=== PATIENT | female | born 1950 | race Caucasian/White ===

== ENCOUNTER → 2016-07-25 | Outpatient (CLI) | payer MEDICARE, MEDICAID ==
[~2016-07-25] MED LIST: AVELOX400 MG PO; BIAXIN500 MG PO; DARVOCET N 1001 TAB PO; DOXYCYCLINE100 MG PO; FENOFIBRATE145 M1 PO; FUROSEMIDE40 MG PO; LEVOTHYROXINE300 MCG PO; LISINOPRIL5 MG PO; METFORMIN500 MG PO; PRAVASTATIN SOD20 MG PO; PREDNISONE10 MG PO; SERTRALINE HYD100 MG PO; VICODIN 5/500 505 MG PO; VITAMIN D50000 I3 PO; WARFARIN SOD5 MG PO; WARFARIN SODIUM1 MG PO
== END ==
LOC: CT 12:30
DX: J44.9 Chronic obstructive pulmonary disease, unspecified (principal); D68.8 Other specified coagulation defects; R05 Cough; R09.89 Other specified symptoms and signs involving the circulatory and respiratory systems; F17.200 Nicotine dependence, unspecified, uncomplicated

== ENCOUNTER → 2016-07-31 | Outpatient (CLI) | payer MEDICARE, MEDICAID | LOC: US 07-28 12:30 | DX: I73.9 Peripheral vascular disease, unspecified (principal); D68.8 Other specified coagulation defects ==

== ENCOUNTER → 2016-08-16 | Outpatient (CLI) | payer MEDICARE, MEDICAID | END | disposition home or self-care (01) | LOC: LAB 10:20 | DX: J44.9 Chronic obstructive pulmonary disease, unspecified (principal) ==

== ENCOUNTER 2016-10-18 14:27 | Emergency (ER) | payer MEDICARE, MEDICAID ==
[~2016-10-18] VITALS: Ht 170.1 cm; Wt 90.7 kg
[2016-10-18 15:04] LABS: OXYHEMOGLOBIN 87.5 % (85.0-98.0); TOTAL HGB 14.5 G/DL (12.0-16.0)
[2016-10-18 15:05] LABS: BASO % 0.4 % (0.0-1.0); EOS # 0.1 10*3/uL (0.0-0.4); EOS % 1.2 % (1.0-4.0); HEMATOCRIT 42.4 % (37.0-47.0); LYMPH # 2.4 10*3/uL (1.3-4.4); LYMPH % 31.2 % (27.0-41.0); MEAN CELL VOLUME 89.1 fl (81.0-99.0); MEAN CORPUSCULAR HGB 29.4 pg (27.0-31.0); MEAN PLATELET VOLUME 8.7 fl (9.6-12.3); MONO # 0.5 10*3/uL (0.1-1.0); MONO % 6.1 % (3.0-9.0); NEUT # 4.7 10*3/uL (2.3-7.9); NEUT % 60.8 % (47.0-73.0); PLATELET COUNT AUTOMATED 132 10*3/uL (130-400); RED BLOOD COUNT 4.76 10*6/uL (4.10-5.10); RED CELL DISTRI WIDTH 16.1 % (0-14.5); WHITE BLOOD COUNT 7.7 10*3/uL (4.8-10.8)
[2016-10-18 15:09] LABS: ABG BASE EXCESS 1.1 mmol/L (-2.0-2.0); ABG CO2 CONTENT 28.8 mmol/L (23-27); ABG HCO3 27.2 mmol/l (22-26); ABG TEMPERATURE 98.6 F (98.0-99.0); ARTERIAL BLOOD GAS PH 7.342 (7.35-7.45)
[2016-10-18 15:10] VITALS: BP 138/86
[2016-10-18 15:36] LABS: ALKALINE PHOSPHATASE 58 U/L (45-117); BILIRUBIN, TOTAL 0.4 mg/dl (0.2-1.0); BUN 17 mg/dl (7-24); CARBON DIOXIDE 27 mmol/L (21-32); CHLORIDE 104 mmol/L (98-107); EST GLOM FILT AFRICAN AMERICAN > 60 ml/min; GLUCOSE 129 mg/dL (65-99); POTASSIUM 4.3 mmol/L (3.5-5.1); SGOT/AST 27 IU/L (3-35); SGPT/ALT 25 U/L (12-78); SODIUM 140 mmol/L (136-145); TOTAL PROTEIN 8.3 gm/dL (6.4-8.2)
[2016-10-18 15:41] LABS: TROPONIN I < 0.015 ng/ml (<0.045)
[2016-10-18 17:01] LABS: LA>2 REFLEX 2 HR DRAW NOW
== END 2016-10-18 17:56 | disposition short-term general hospital (02) ==
LOC: ED 14:27
PROVIDERS: Student in an Organized Health Care Education/Training Program
DX: T20.30XA Burn of third degree of head, face, and neck, unspecified site, initial encounter (principal); Z79.899 Other long term (current) drug therapy; Z88.1 Allergy status to other antibiotic agents; Z88.8 Allergy status to other drugs, medicaments and biological substances; X08.8XXA Exposure to other specified smoke, fire and flames, initial encounter; Y93.89 Activity, other specified; Y92.89 Other specified places as the place of occurrence of the external cause; Y99.8 Other external cause status

== ENCOUNTER → 2016-10-31 | Outpatient (CLI) | payer MEDICARE, MEDICAID | END | disposition home or self-care (01) | LOC: RAD 13:39 | DX: J44.9 Chronic obstructive pulmonary disease, unspecified (principal); E11.9 Type 2 diabetes mellitus without complications ==

== ENCOUNTER 2016-11-06 12:11 | Emergency (ER) | payer MEDICARE, MEDICAID ==
[2016-11-06 12:38] LABS: BASO % 0.4 % (0.0-1.0); EOS # 0.1 10*3/uL (0.0-0.4); EOS % 1.6 % (1.0-4.0); HEMATOCRIT 35.7 % (37.0-47.0); HEMOGLOBIN 11.9 g/dl (12.0-16.0); LYMPH # 1.1 10*3/uL (1.3-4.4); LYMPH % 14.4 % (27.0-41.0); MEAN CELL VOLUME 89.3 fl (81.0-99.0); MEAN CORPUSCULAR HGB 29.8 pg (27.0-31.0); MEAN CORPUSCULAR HGB CONC 33.3 g/dl (33.0-37.0); MEAN PLATELET VOLUME 8.7 fl (9.6-12.3); MONO # 0.4 10*3/uL (0.1-1.0); MONO % 5.2 % (3.0-9.0); NEUT % 77.9 % (47.0-73.0); PLATELET COUNT AUTOMATED 154 10*3/uL (130-400); RED CELL DISTRI WIDTH 17.3 % (0-14.5); WHITE BLOOD COUNT 7.7 10*3/uL (4.8-10.8)
[2016-11-06 12:45] LABS: ACT PARTIAL THROMBO TIME 26.7 SECONDS (20.8-31.5)
[2016-11-06 12:53] LABS: ALBUMIN 3.3 gm/dl (3.1-4.5); ALKALINE PHOSPHATASE 75 U/L (45-117); BUN 25 mg/dl (7-24); CHLORIDE 96 mmol/L (98-107); CREATININE 1.32 mg/dL (0.55-1.02); MAGNESIUM 2.3 mg/dL (1.5-2.1); POTASSIUM 3.7 mmol/L (3.5-5.1); SGOT/AST 17 IU/L (3-35); SGPT/ALT 16 U/L (12-78); SODIUM 135 mmol/L (136-145); TOTAL PROTEIN 8.2 gm/dL (6.4-8.2)
[2016-11-06 13:02] LABS: TROPONIN I < 0.015 ng/ml (<0.045)
[2016-11-06 17:34] VITALS: BP 113/57
== END 2016-11-06 18:30 | disposition home or self-care (01) ==
LOC: ED 12:11
PROVIDERS: Emergency Medicine
DX: J18.9 Pneumonia, unspecified organism (principal); I26.99 Other pulmonary embolism without acute cor pulmonale; R09.1 Pleurisy; J44.9 Chronic obstructive pulmonary disease, unspecified; Z79.899 Other long term (current) drug therapy; Z88.1 Allergy status to other antibiotic agents

== ENCOUNTER → 2017-02-06 | Outpatient (CLI) | payer MEDICARE, MEDICAID ==
[~2017-02-06] MED LIST changes: +CENTRUM SILVER1 EACH PO; +CYCLOBENZAPRINE10 MG PO; +ERYTHROMYCIN OPH1 GM OPH; +GUAIFENESIN600 MG PO; -LEVOTHYROXINE300 MCG PO; +Synthroid,Lev200 MCG PO; +Synthroid,Levo25 MCG PO; +TRAMADOL HCL50 MG PO; +VITAMIN D31000 UNI1 PO
== END ==
LOC: CT 13:00
DX: J43.9 Emphysema, unspecified (principal); I25.10 Atherosclerotic heart disease of native coronary artery without angina pectoris; J92.9 Pleural plaque without asbestos

== ENCOUNTER 2017-02-26 10:21 | Inpatient (IN) | payer MEDICARE, MEDICAID ==
[~2017-02-26] VITALS: Ht 160 cm; Wt 82.6 kg
--- NOTE | ~2017-02-26 | CON ---
[place], [place] REPORT OF CONSULTATION NAME: DEION LOPEZ UNIT #: [id number] ROOM: 427 DOCTOR: YARELY TENA ED.D (MARY JANE) BIRTHDATE: [birth year] DOS: 02/27/2017 HISTORY OF PRESENT ILLNESS: The patient is a 66-year-old female, referred by the hospitalist for competency evaluation. At the present time, this patient is on the 4th floor at [facility]. She is and has no children, but does have a durable power of insurance defense attorney for the [facility], Syl Colon. 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 Her family physician is Esperanza Rodriguez, nurse practitioner. MEDICAL HISTORY: Pertinent for COPD, bowel and bladder incontinence, deep vein thrombophlebitis, chronic respiratory failure, diabetes mellitus, hypertension and depression. MEDICATIONS: Include Symbicort, vitamin D3, fenofibrate, Synthroid, lisinopril, metformin, pravastatin, Zoloft, tramadol and warfarin. SOCIAL HISTORY: This patient states she does smoke one and one half packs of cigarettes per day and some alcohol, but not excessively. PHYSICAL EXAMINATION: She was awake, alert and oriented in all three spheres. She denies any suicidal ideation or plan. Her short and long-term memory were fair and she did fairly well, although she was somewhat confused earlier because she had, in her words, so many people coming in to see her that she became somewhat confused. Throughout my interview, she did very well and in my opinion, she is competent to make informed healthcare decisions. She does suffer from mild depression. DIAGNOSIS: Persistent depressive disorder. RECOMMENDATIONS: In my opinion, this patient is competent to make informed healthcare decisions. Thank you very much for this consult. YARELY TENA ED.D CM:CONSTR:REPORT OF CONSULTATION 1647 02/28/17 0323 interface
[2017-02-26 10:30] VITALS: BP 116/85
[2017-02-26 11:38] LABS: BASO % 0.4 % (0.0-1.0); EOS # 0.5 10*3/uL (0.0-0.4); EOS % 9.5 % (1.0-4.0); HEMOGLOBIN 11.7 g/dl (12.0-16.0); LYMPH # 0.9 10*3/uL (1.3-4.4); LYMPH % 15.7 % (27.0-41.0); MEAN CELL VOLUME 82.7 fl (81.0-99.0); MEAN CORPUSCULAR HGB 27.7 pg (27.0-31.0); MEAN CORPUSCULAR HGB CONC 33.4 g/dl (33.0-37.0); MEAN PLATELET VOLUME 9.3 fl (9.6-12.3); MONO # 0.4 10*3/uL (0.1-1.0); NEUT # 3.8 10*3/uL (2.3-7.9); PLATELET COUNT AUTOMATED 118 10*3/uL (130-400); RED BLOOD COUNT 4.23 10*6/uL (4.10-5.10); RED CELL DISTRI WIDTH 17.4 % (0-14.5); WHITE BLOOD COUNT 5.7 10*3/uL (4.8-10.8)
[2017-02-26 11:45] VITALS: BP 142/75
--- NOTE | 2017-02-26 11:52 | NUR ---
The assessment has been completed. JARROD ABEL
[2017-02-26 12:00] VITALS: BP 142/75
[2017-02-26 12:00] LABS: ALBUMIN 3.7 gm/dl (3.1-4.5); ALKALINE PHOSPHATASE 135 U/L (45-117); BUN 17 mg/dl (7-24); CHLORIDE 102 mmol/L (98-107); CREATININE 1.01 mg/dL (0.55-1.02); LIPASE 163 U/L (73-393); POTASSIUM 3.7 mmol/L (3.5-5.1); SGOT/AST 18 IU/L (3-35); SGPT/ALT 23 U/L (12-78); SODIUM 134 mmol/L (136-145)
[2017-02-26 12:02] LABS: TROPONIN I < 0.015 ng/ml (<0.045)
[2017-02-26] MEDS ORDERED: OYSTER SHELL C1 EAC7 PO (12:08)
[2017-02-26] MEDS ORDERED: SYMB160 INH (12:09)
[2017-02-26] MEDS ORDERED: INCRUSE ELLI62.5 MCG INH (12:10)
[2017-02-26] MEDS ORDERED: PROLASTIN C1000 MG IV (12:33)
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
[2017-02-26 16:00] VITALS: BP 121/67
--- NOTE | 2017-02-26 19:42 | NUR ---
PATIENT RESTING IN BED WITH NO S/S OF DISTRESS. BED IN LOWEST POSITION, CALL LIGHT IN REACH
[2017-02-26 20:00] VITALS: BP 104/63
[2017-02-27] VITALS: BP 122/66
--- NOTE | 2017-02-27 03:04 | NUR ---
PATIENT MEDICATED WITH PRN NORCO FOR LOWER BACK PAIN RATED 5/10 ON A 0/10 PAIN SCALE
[2017-02-27 07:23] LABS: BASO % 0.6 % (0.0-1.0); EOS # 0.5 10*3/uL (0.0-0.4); EOS % 9.8 % (1.0-4.0); HEMATOCRIT 33.8 % (37.0-47.0); LYMPH % 21.5 % (27.0-41.0); MEAN CELL VOLUME 84.9 fl (81.0-99.0); MEAN CORPUSCULAR HGB 27.6 pg (27.0-31.0); MEAN CORPUSCULAR HGB CONC 32.5 g/dl (33.0-37.0); MEAN PLATELET VOLUME 9.7 fl (9.6-12.3); MONO # 0.3 10*3/uL (0.1-1.0); MONO % 6.4 % (3.0-9.0); NEUT # 2.9 10*3/uL (2.3-7.9); NEUT % 61.3 % (47.0-73.0); PLATELET COUNT AUTOMATED 128 10*3/uL (130-400); RED BLOOD COUNT 3.98 10*6/uL (4.10-5.10); RED CELL DISTRI WIDTH 17.9 % (0-14.5); WHITE BLOOD COUNT 4.7 10*3/uL (4.8-10.8)
[2017-02-27 07:28] LABS: INTERNATIONAL NORM RATIO 3.3 (2.0-3.5)
[2017-02-27 08:00] VITALS: BP 118/48
--- NOTE | 2017-02-27 08:30 | NUR ---
SW WILL WORK ON DC PLAN.
[2017-02-27 08:33] LABS: CHLORIDE 106 mmol/L (98-107); POTASSIUM 4.1 mmol/L (3.5-5.1); SODIUM 139 mmol/L (136-145)
[2017-02-27 08:45] LABS: ALBUMIN 3.2 gm/dl (3.1-4.5); ALKALINE PHOSPHATASE 123 U/L (45-117); BUN 15 mg/dl (7-24); CHOLESTEROL 126 mg/dL (<200); CREATININE 0.96 mg/dL (0.55-1.02); FREE T4 1.22 ng/dl (0.76-1.46); HDL CHOLESTEROL 49 mg/dl (40-60); LDL CHOLESTEROL 52 mg/dL (9-159); PHOSPHOROUS 3.7 mg/dL (2.5-4.9); SGOT/AST 15 IU/L (3-35); SGPT/ALT 20 U/L (12-78); TOTAL PROTEIN 7.2 gm/dL (6.4-8.2); TRIGLYCERIDES 126 mg/dl (<150); VLDL CHOLESTEROL 25 mg/dL (6-40)
[2017-02-27] MEDS ORDERED: COUMADIN6 M2 PO (08:57)
--- NOTE | 2017-02-27 09:00 | NUR ---
NOTIFIED DR RODRIGUEZ THAT PT RECEIVES PROLASTIN-C OUTPATIENT ON TUESDAYS AND IS DUE TODAY.
--- NOTE | 2017-02-27 09:15 | NUR ---
PHYSICAL THERAPY Patient with nursing and then respiratory therapy entered. Thank you for this referral. Jen Rollins,PT
[2017-02-27 09:59] LABS: VITAMIN D, 25-HYDROXY 36.1 ng/mL (30-100)
--- NOTE | 2017-02-27 10:28 | NUR ---
OFFICE STAFF WAS NOTIFIED OF DR. TENA CONSULT. RESPONSE OF NOTIFICATION WAS OK I WILL GIVE IT TO HIM. NIKKI LERNER
--- NOTE | 2017-02-27 10:33 | NUR ---
PHYSICIAN WAS NOTIFIED OF DR. NUNEZ CONSULT. RESPONSE OF NOTIFICATION WAS DR NUNEZ WAS ON FLOOR AND WENT TO SEE PATIENT. NIKKI LERNER
--- NOTE | 2017-02-27 10:39 | NUR ---
PHYSICAL THERAPY PAtient evaluated on 4, full evaluation to follow. Continue with PT as per plan of care with fall, wounds (B)LE, 02 and acute debility precautions. Multiple loses of balance, safety issues and significiant dyspneia with minimal exertion - recommend SNF in order to return to 100 % (I) PLOF. PAtient is moderate complexity via chart review, tests and evaluation: 15702. Thank you for this referral. Jen Garcia,PT
--- NOTE | 2017-02-27 11:17 | NUR ---
PT EVALUATION COMPLETED AT BS. OT MODERATE COMPLEXITY DETERMINED BY OT EVAL AND CHART REVIEW.
--- NOTE | 2017-02-27 11:56 | NUR ---
DEION LOPEZ [id number] Please refer to the physician's history and physical for past medical history, comorbid conditions, and allergies. Diagnosis: CELLULITIS OF BOTH LOWER EXTREMITIES Tariq Score: 22,LOW OR NO RISK WOUND DESCRIPTIONS: Location of the wound: right top of foot Thickness: Full Size: 2.0cm x 2.0cm x 0.1cm Tunneling: none Undermining: none Sinus Tract: none Presence of Exudate: Serous Amount: Moderate Color: Yellow, red, brown Odor: None Periwound Skin Appearance: Erythema Wound edges: approximated Pain (associated with wound): none at time of assessment How does patient state this happened? pt stated it occurred from itching her legs a couple weeks ago and has gotten worse Pedal pulse bilaterally very faint to touch. Location of the wound: right lower extremity medial Thickness: Full Size: 6.5cm x 4.5cm x 0.1cm Tunneling: none Undermining: none Sinus Tract: none Presence of Exudate: Serous Amount: Moderate Color: Yellow, red Odor: None Periwound Skin Appearance: Erythema Wound edges: approximated Pain (associated with wound): none at time of assessment How does patient state this happened? pt stated it occurred from itching her Legs a couple weeks ago and has gotten worse. Location of the wound: left lower extremity medial Thickness: Full Size: 6.0cm x 4.0cm x 0.1cm Tunneling: none Undermining: none Sinus Tract: none Presence of Exudate: Serous Amount: Moderate Color: Yellow, red Odor: None Periwound Skin Appearance: Erythema Wound edges: approximated Pain (associated with wound): none at time of assessment How does patient state this happened? pt stated it occurred from itching her Legs a couple weeks ago and has gotten worse. Surface the patient is resting on: Position Pro SKIN PREVENTION RECOMMENDATION: 1. Pressure redistribution support surface as appropriate 2. Elevate heels 3. Remove boots/TEDS every shift and reapply 4. Head of bed 30 degrees as tolerated 5. Assess nutrition and hydration 6. Manage moisture 7. Avoid the use of containment devices while in bed 8. Use absorptive products on surfaces limit layers of linens on bed 9. Turn and reposition every 1-2 hours in bed and every 1 hour in chair as tolerated 10. Weight shifts every 15 minutes while up in chair 11. Offloading with pillows or device to keep heels elevated off bed 12. Monitor skin at least every shift 13. Inspect under medical devices twice a day WOUND TREATMENT RECOMMENDATIONS: Consult surgery for possible debridement. Cleanse Bilateral lower extremities with nss and apply sureprep to surrounding wound apply therahoney to wound bed cover wound with maxorb and apply abd and wrap with kerlix daily and prn for soiling.
[2017-02-27 12:00] VITALS: BP 113/69
--- NOTE | 2017-02-27 12:54 | NUR ---
SW SPOKE WITH PT ABOUT DISCHARGE PLANS. PT HAS A NEW APARTMRNT AT [address] [place] [address]. PT AGREED TO GO TO SNF AT [facility] FOR SHORT REHAB STAY. SW WILL MAKE REFERRAL.
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
--- NOTE | 2017-02-27 13:18 | NUR ---
AG NOTIFIED HOSPITALIST OFFICE BETTYE THAT PT AGREED TO SNF STAY AT [facility].
--- NOTE | 2017-02-27 13:31 | NUR ---
OFFICE STAFF WAS NOTIFIED OF DR. DURAN CONSULT. RESPONSE OF NOTIFICATION WAS OK I WILL GIVE IT TO HER. NIKKI LERNER
--- NOTE | 2017-02-27 13:57 | NUR ---
PER PHARMACY WE ARE UNABLE TO DO PROLASTIN INFUSION WHILE SHE IS INPATIENT BECAUSE OF COST. WILL NOTIFY DR RODRIGUEZ.
[2017-02-27 16:00] VITALS: BP 106/53
[2017-02-27 20:00] VITALS: BP 108/68
--- NOTE | 2017-02-27 22:41 | NUR ---
PATIENT RESTING IN BED WITH NO NEEDS MADE. ABX INFUSING WITHOUT DIFFICULTY. BED IN LOWEST POSITION, CALL LIGHT IN REACH
[2017-02-28] VITALS: BP 110/50
--- NOTE | 2017-02-28 00:45 | NUR ---
PATIENT MEDICATED WITH PRN NORCO FOR C/O LOWER BACK PAIN RATED 4/10 ON A 0/10 PAIN SCALE
--- NOTE | 2017-02-28 00:58 | NUR ---
24 HR chart check completed.
[2017-02-28 04:04] VITALS: BP 108/52
[2017-02-28 07:56] LABS: BASO % 0.5 % (0.0-1.0); EOS # 0.5 10*3/uL (0.0-0.4); EOS % 11.8 % (1.0-4.0); HEMATOCRIT 32.6 % (37.0-47.0); HEMOGLOBIN 10.8 g/dl (12.0-16.0); LYMPH # 0.9 10*3/uL (1.3-4.4); LYMPH % 23.3 % (27.0-41.0); MEAN CELL VOLUME 84.5 fl (81.0-99.0); MEAN CORPUSCULAR HGB CONC 33.1 g/dl (33.0-37.0); MONO # 0.3 10*3/uL (0.1-1.0); MONO % 6.9 % (3.0-9.0); NEUT # 2.2 10*3/uL (2.3-7.9); NEUT % 57.2 % (47.0-73.0); PLATELET COUNT AUTOMATED 108 10*3/uL (130-400); RED BLOOD COUNT 3.86 10*6/uL (4.10-5.10); WHITE BLOOD COUNT 3.9 10*3/uL (4.8-10.8)
[2017-02-28 08:00] VITALS: BP 113/64
[2017-02-28 08:23] LABS: CHLORIDE 105 mmol/L (98-107); POTASSIUM 4.1 mmol/L (3.5-5.1); SODIUM 140 mmol/L (136-145)
[2017-02-28 08:27] LABS: BUN 14 mg/dl (7-24); INTERNATIONAL NORM RATIO 1.8 (2.0-3.5)
--- NOTE | 2017-02-28 08:36 | NUR ---
IN BED AWAKE ALERT AND ORIENTED X3, NO S/S OF DISTRESS. NO C/O. WILL CONT TO MONITOR. SEE ASSESS. CALL LIGHT IN REACH.
--- NOTE | 2017-02-28 10:20 | NUR ---
PHYSICAL THERAPY Patient presented to therapy in supine with report of skin pealing off her hands and pain in feet with standing. Patient performed sit to stand transfer with CGA for 200' x 1 with instruction on pacing herself with no assistive device. Patient's O2 dropped ot 89% while performing gait. Patient did not demonstrate SOB while ambulating. Patient then performed seated ther ex x 20 reps each LE in all planes of movement. Patient transfered back to supine in bed and bed alarm was activated and call light was put within reach. MJ HARP LIGHT INDUSTRIAL SUPERVISOR
[2017-02-28 12:00] VITALS: BP 113/62
[2017-02-28 16:00] VITALS: BP 121/57
--- NOTE | 2017-02-28 16:00 | NUR ---
[facility] THAT FACILITY CAN ACCEPT PT ON SUNDAY.
[2017-02-28 20:00] VITALS: BP 121/59
--- NOTE | 2017-02-28 22:20 | NUR ---
PATIENT RESTING IN BED WATCHING TV. NO NEEDS MADE. NO S/S OF DISTRESS. BED IN LOWEST POSITION, CALL LIGHT IN REACH
[2017-03-01] VITALS: BP 118/55
--- NOTE | 2017-03-01 00:46 | NUR ---
24 HR chart check completed.
--- NOTE | 2017-03-01 01:25 | NUR ---
PATIENT MEDICATED WITH PRN RESTORIL FOR C/O SLEEPLESSNESS
--- NOTE | 2017-03-01 02:59 | NUR ---
PATIENT RESTING IN BED WITH NO S/S OF DISTRESS. BED IN LOWEST POSITION, CALL LIGHT IN REACH
[2017-03-01 07:37] LABS: BASO % 0.5 % (0.0-1.0); EOS # 0.5 10*3/uL (0.0-0.4); EOS % 11.4 % (1.0-4.0); HEMATOCRIT 31.1 % (37.0-47.0); HEMOGLOBIN 10.2 g/dl (12.0-16.0); LYMPH # 0.9 10*3/uL (1.3-4.4); MEAN CELL VOLUME 86.6 fl (81.0-99.0); MEAN CORPUSCULAR HGB 28.4 pg (27.0-31.0); MEAN CORPUSCULAR HGB CONC 32.8 g/dl (33.0-37.0); MEAN PLATELET VOLUME 9.9 fl (9.6-12.3); MONO # 0.3 10*3/uL (0.1-1.0); MONO % 7.9 % (3.0-9.0); NEUT # 2.3 10*3/uL (2.3-7.9); NEUT % 57.7 % (47.0-73.0); PLATELET COUNT AUTOMATED 111 10*3/uL (130-400); RED BLOOD COUNT 3.59 10*6/uL (4.10-5.10)
[2017-03-01 08:00] VITALS: BP 115/58
[2017-03-01 08:07] LABS: CHLORIDE 106 mmol/L (98-107); POTASSIUM 4.4 mmol/L (3.5-5.1); SODIUM 141 mmol/L (136-145)
[2017-03-01 08:12] LABS: INTERNATIONAL NORM RATIO 1.6 (2.0-3.5)
[2017-03-01 08:15] LABS: ALKALINE PHOSPHATASE 105 U/L (45-117); BUN 16 mg/dl (7-24); CREATININE 0.96 mg/dL (0.55-1.02); SGOT/AST 22 IU/L (3-35); SGPT/ALT 21 U/L (12-78); TOTAL PROTEIN 7.1 gm/dL (6.4-8.2)
--- NOTE | 2017-03-01 10:42 | NUR ---
DRESSINGS NOT APPLIED REQUESTS AT THIS TIME, SO WOUNDS CAN BE LOOKED AT
--- NOTE | 2017-03-01 11:47 | NUR ---
ASSUMED CARE OF PATIENT. PATIENT STATES THEY ARE GETTING DISCHARGED TODAY AND WANT TO GET A SHOWER AND PUT ON REAL CLOTHES. PATIENT IS A&OX3 AND AMBULATORY. PATIENT VERBALIZES FEELING SOB ON EXERTION WHILE ON 2LPM VIA NC. PATIENT HAS PARKER TO BOTH LE FROM MIDDLE OF THE CONWAY DOWN. PATIENT DENIES PAIN OR DISCOMFORT AT THIS TIME. CALL LIGHT IS WITHIN REACH, HOB ELEVATED. SEE ASSESSMENT.
[2017-03-01 12:00] VITALS: BP 113/58
[2017-03-01] MEDS ORDERED: DOXYCYCLINE100 M3 PO (13:10)
--- NOTE | 2017-03-01 13:58 | NUR ---
PHYSICAL THERAPY Patient presented to therapy with report of not going home today, but she may go home tommorrow. Patient performed supine to sit at EOB and sit to stand transfers with Supervision. Patient performed gait with no assistive device and no spO2 for 300' x 1 with Close Supervision with one standing rest break. Patient then performed seated at EOB ther ex x 20 reps each LE in all planes of movement. Patient was left in supine position in bed with bed arm activated and call light within reach. MJ HARP RN BABY
--- NOTE | 2017-03-01 14:08 | NUR ---
PHYSICAL THERAPY CO-SIGN I approve of the Phyical Therapy notes written above. NALDO JENKINS PT
--- NOTE | 2017-03-01 15:46 | NUR ---
SW WAS INFORMED DISCHARGE WAS IN. SW CALLED NURSE ABOUT SETTING UP TRANSPORTATION. NURSE STATED PT WAS GOIGN TO HAVE FRIEND TAKE HER OR A TAXI.
--- NOTE | 2017-03-01 15:47 | NUR ---
SW NOTIFIED AVELINO AT [facility] THAT DISCHARGE WAS IN ND TRANSPORTATION WAS BEING ARRANGED.
[2017-03-01 16:00] VITALS: BP 120/56
== END 2017-03-01 17:45 | disposition other institution (70) | DRG 872 ==
LOC: ED 10:21 → EDHOLD 11:06 → 4E 11:06
PROVIDERS: Emergency Medicine; Internal Medicine; ADMIT Internal Medicine
DX: A41.9 Sepsis, unspecified organism (principal); J96.11 Chronic respiratory failure with hypoxia; D69.6 Thrombocytopenia, unspecified; E11.65 Type 2 diabetes mellitus with hyperglycemia; E11.621 Type 2 diabetes mellitus with foot ulcer; L97.519 Non-pressure chronic ulcer of other part of right foot with unspecified severity; L03.115 Cellulitis of right lower limb; L03.116 Cellulitis of left lower limb; M48.56XA Collapsed vertebra, not elsewhere classified, lumbar region, initial encounter for fracture; F17.210 Nicotine dependence, cigarettes, uncomplicated; R65.20 Severe sepsis without septic shock; D64.9 Anemia, unspecified; J44.9 Chronic obstructive pulmonary disease, unspecified; I10 Essential (primary) hypertension; E78.5 Hyperlipidemia, unspecified; E03.9 Hypothyroidism, unspecified; I87.2 Venous insufficiency (chronic) (peripheral); F34.1 Dysthymic disorder; G89.29 Other chronic pain; M54.40 Lumbago with sciatica, unspecified side; Z99.81 Dependence on supplemental oxygen; Z88.1 Allergy status to other antibiotic agents; Z79.01 Long term (current) use of anticoagulants; Z79.899 Other long term (current) drug therapy; Z86.718 Personal history of other venous thrombosis and embolism; Z82.3 Family history of stroke; Z80.1 Family history of malignant neoplasm of trachea, bronchus and lung; Z79.84 Long term (current) use of oral hypoglycemic drugs

== ENCOUNTER → 2017-05-09 | Outpatient (CLI) | payer MEDICARE, MEDICAID ==
[~2017-05-09] MED LIST changes: +BREO ELLIPTA 11 EACH INH; +COUMADIN6 M2 PO; +DOXYCYCLINE100 M3 PO; +FENOFIBRATE MI200 MG PO; +INCRUSE ELLI62.5 MCG INH; +OYSTER SHELL C1 EAC7 PO; +PROLASTIN C1000 MG IV; +SYMB160 INH
== END | disposition home or self-care (01) ==
LOC: ORTHO 02:14
DX: M47.896 Other spondylosis, lumbar region (principal); M47.897 Other spondylosis, lumbosacral region; M25.78 Osteophyte, vertebrae; I70.0 Atherosclerosis of aorta

== ENCOUNTER 2017-05-24 18:14 | Inpatient (IN) | payer MEDICARE, MEDICAID ==
[~2017-05-24] VITALS: Ht 160 cm; Wt 77.1 kg
[2017-05-24 18:22] VITALS: BP 136/47
[2017-05-24 19:10] LABS: BASO % 0.4 % (0.0-1.0); EOS # 0.4 10*3/uL (0.0-0.4); HEMATOCRIT 38.8 % (37.0-47.0); HEMOGLOBIN 12.4 g/dl (12.0-16.0); LYMPH # 0.8 10*3/uL (1.3-4.4); LYMPH % 15.7 % (27.0-41.0); MEAN CELL VOLUME 87.6 fl (81.0-99.0); MEAN PLATELET VOLUME 9.3 fl (9.6-12.3); MONO # 0.3 10*3/uL (0.1-1.0); MONO % 5.8 % (3.0-9.0); NEUT # 3.5 10*3/uL (2.3-7.9); NEUT % 69.9 % (47.0-73.0); PLATELET COUNT AUTOMATED 162 10*3/uL (130-400); RED BLOOD COUNT 4.43 10*6/uL (4.10-5.10); RED CELL DISTRI WIDTH 15.5 % (0-14.5)
[2017-05-24 19:19] LABS: INTERNATIONAL NORM RATIO 4.1 (2.0-3.5)
[2017-05-24 19:25] LABS: ALBUMIN 3.5 gm/dl (3.1-4.5); ALKALINE PHOSPHATASE 87 U/L (45-117); BUN 17 mg/dl (7-24); CHLORIDE 99 mmol/L (98-107); POTASSIUM 3.9 mmol/L (3.5-5.1); SGOT/AST 16 IU/L (3-35); SGPT/ALT 19 U/L (12-78); SODIUM 135 mmol/L (136-145); TOTAL PROTEIN 8.5 gm/dL (6.4-8.2)
[2017-05-24 19:52] VITALS: BP 129/95
[2017-05-24 20:16] LABS: BILIRUBIN NEGATIVE (NEGATIVE); BLOOD NEGATIVE (NEGATIVE); CLARITY CLEAR (CLEAR); COLOR YELLOW (YELLOW); GLUCOSE NEGATIVE (NEGATIVE); KETONE NEGATIVE (NEGATIVE); LEUKO ESTERASE NEGATIVE (NEGATIVE); NITRITE NEGATIVE (NEGATIVE); PH 5.5 (5.0-9.0); SPECIFIC GRAVITY 1.015 (1.005-1.030); UROBILINOGEN 0.2 E.U./dl (0.2-1.0)
[2017-05-24 20:26] LABS: BACTERIA 1+; MUCOUS 1+
[2017-05-24 20:53] VITALS: BP 112/50
[2017-05-24] MEDS ORDERED: ONDANSETRON4 M1 PO (20:59)
[2017-05-24] MEDS ORDERED: IBUPROFEN IB200 M1 PO (20:59)
[2017-05-24] MEDS ORDERED: OMEPRAZOLE10 MG PO (21:00)
[2017-05-24] MEDS ORDERED: ALPRAZOLAM0.25 M1 PO (21:00)
[2017-05-24] MEDS ORDERED: ATORVASTATIN CA10 M1 PO (21:00)
[2017-05-24] MEDS ORDERED: XARE20MG PO (21:01)
[2017-05-24] MEDS ORDERED: GEMFIBROZIL600 MG PO (21:01)
[2017-05-24] MEDS ORDERED: DIGOX125 MCG PO (21:01)
[2017-05-24] MEDS ORDERED: LOPRESSOR25 MG PO (21:02)
[2017-05-24] MEDS ORDERED: COLACE CLEAR50 MG PO (21:02)
[2017-05-24] MEDS ORDERED: DELTASONE20 M1 PO (21:02)
[2017-05-24] MEDS ORDERED: METFORMIN ER500 MG PO (21:03)
[2017-05-24] MEDS ORDERED: VITAMIN D31000 UNIT PO (21:03)
[2017-05-24] MEDS ORDERED: B-121000 MCG PO (21:04)
[2017-05-24] MEDS ORDERED: MAGOX 400400 MG PO (21:04)
[2017-05-24] MEDS ORDERED: C-10001000 MG PO (21:04)
[2017-05-24] MEDS ORDERED: FLONASE ALLERG9.9 ML NAS (21:06)
[2017-05-24] MEDS ORDERED: SEPTDS PO (21:06)
[2017-05-24] MEDS ORDERED: ZOVIRAX400 MG PO (21:06)
[2017-05-24] MEDS ORDERED: KLOR-CON M1010 ME1 PO (21:07)
[2017-05-24] MEDS ORDERED: LASIX40 MG PO (21:07)
[2017-05-24] MEDS ORDERED: ANTI-DIARRHEAL2 MG PO (21:08)
[2017-05-24] MEDS ORDERED: OXYCODONE HYDROC5 MG PO (21:08)
[2017-05-24] MEDS ORDERED: PAIN RELIEVER325 MG PO (21:09)
[2017-05-24 21:15] VITALS: BP 129/71
[2017-05-24 21:29] VITALS: BP 129/71
[2017-05-24] MEDS ORDERED: WARFARIN SOD5 MG PO (21:48)
[2017-05-24] MEDS ORDERED: LEVOTHYROXINE200 MC2 PO (21:50)
[2017-05-24] MEDS ORDERED: METFORMIN500 MG PO (21:51)
[2017-05-24] MEDS ORDERED: TRAMADOL HCL50 MG PO (21:53)
[2017-05-25 00:10] VITALS: BP 115/58
[2017-05-25 07:31] LABS: BASO % 0.3 % (0.0-1.0); CHLORIDE 108 mmol/L (98-107); EOS # 0.3 10*3/uL (0.0-0.4); EOS % 7.2 % (1.0-4.0); LYMPH # 0.9 10*3/uL (1.3-4.4); LYMPH % 24.9 % (27.0-41.0); MEAN CELL VOLUME 88.8 fl (81.0-99.0); MEAN CORPUSCULAR HGB 28.4 pg (27.0-31.0); MEAN CORPUSCULAR HGB CONC 31.9 g/dl (33.0-37.0); MONO # 0.3 10*3/uL (0.1-1.0); MONO % 6.7 % (3.0-9.0); NEUT # 2.3 10*3/uL (2.3-7.9); NEUT % 60.6 % (47.0-73.0); PLATELET COUNT AUTOMATED 132 10*3/uL (130-400); RED BLOOD COUNT 3.49 10*6/uL (4.10-5.10); RED CELL DISTRI WIDTH 15.9 % (0-14.5); SODIUM 143 mmol/L (136-145); WHITE BLOOD COUNT 3.7 10*3/uL (4.8-10.8)
[2017-05-25 07:32] LABS: HEMOGLOBIN 9.9 g/dl (12.0-16.0)
[2017-05-25 07:38] LABS: ALBUMIN 2.7 gm/dl (3.1-4.5); ALKALINE PHOSPHATASE 68 U/L (45-117); BUN 12 mg/dl (7-24); CREATININE 0.87 mg/dL (0.55-1.02); PHOSPHOROUS 3.3 mg/dL (2.5-4.9); SGOT/AST 14 IU/L (3-35); SGPT/ALT 15 U/L (12-78); TOTAL PROTEIN 6.6 gm/dL (6.4-8.2)
[2017-05-25 08:00] VITALS: BP 118/61
[2017-05-25 12:00] VITALS: BP 112/65
[2017-05-25 12:12] LABS: INTERNATIONAL NORM RATIO 4.9 (2.0-3.5)
[2017-05-25] MEDS ORDERED: BREO ELLIPTA 11 EACH INH (12:24)
[2017-05-25] MEDS ORDERED: PRAVACHOL20 MG PO (12:30)
[2017-05-25] MEDS ORDERED: ZOLOFT100 MG PO (12:31)
[2017-05-25] MEDS ORDERED: FENOFIBRATE145 M1 PO (12:31)
[2017-05-25] MEDS ORDERED: LISINOPRIL2.5 MG PO (12:32)
[2017-05-25] MEDS ORDERED: INCRUSE ELLI62.5 MCG INH (12:33)
[2017-05-25] MEDS ORDERED: VITAMIN D400 I1 PO (12:36)
[2017-05-25] MEDS ORDERED: Oscal,Oyster S500 MG PO (12:37)
[2017-05-25 16:00] VITALS: BP 106/63
[2017-05-25 20:02] VITALS: BP 110/62
[2017-05-26] VITALS: BP 103/80
[2017-05-26 06:05] LABS: ALBUMIN 2.8 gm/dl (3.1-4.5); ALKALINE PHOSPHATASE 65 U/L (45-117); BUN 13 mg/dl (7-24); CHLORIDE 107 mmol/L (98-107); CREATININE 0.92 mg/dL (0.55-1.02); POTASSIUM 4.2 mmol/L (3.5-5.1); SGOT/AST 13 IU/L (3-35); SGPT/ALT 17 U/L (12-78); SODIUM 140 mmol/L (136-145); TOTAL PROTEIN 6.6 gm/dL (6.4-8.2)
[2017-05-26 06:08] LABS: BASO % 0.3 % (0.0-1.0); EOS # 0.2 10*3/uL (0.0-0.4); EOS % 6.6 % (1.0-4.0); HEMATOCRIT 30.8 % (37.0-47.0); HEMOGLOBIN 9.8 g/dl (12.0-16.0); LYMPH # 0.8 10*3/uL (1.3-4.4); LYMPH % 23.7 % (27.0-41.0); MEAN CELL VOLUME 87.5 fl (81.0-99.0); MEAN CORPUSCULAR HGB 27.8 pg (27.0-31.0); MEAN CORPUSCULAR HGB CONC 31.8 g/dl (33.0-37.0); MEAN PLATELET VOLUME 9.3 fl (9.6-12.3); MONO # 0.2 10*3/uL (0.1-1.0); MONO % 7.2 % (3.0-9.0); NEUT # 2.1 10*3/uL (2.3-7.9); NEUT % 61.9 % (47.0-73.0); PLATELET COUNT AUTOMATED 126 10*3/uL (130-400); RED BLOOD COUNT 3.52 10*6/uL (4.10-5.10); RED CELL DISTRI WIDTH 15.6 % (0-14.5); WHITE BLOOD COUNT 3.3 10*3/uL (4.8-10.8)
[2017-05-26 06:42] LABS: INTERNATIONAL NORM RATIO 3.5 (2.0-3.5)
[2017-05-26 08:00] VITALS: BP 125/72
[2017-05-26 12:00] VITALS: BP 122/65
[2017-05-26 16:00] VITALS: BP 118/56
[2017-05-26 20:00] VITALS: BP 115/60
[2017-05-27] VITALS: BP 117/50
[2017-05-27 04:00] VITALS: BP 118/86
[2017-05-27 05:54] LABS: BASO % 0.3 % (0.0-1.0); EOS # 0.2 10*3/uL (0.0-0.4); EOS % 6.8 % (1.0-4.0); HEMATOCRIT 30.7 % (37.0-47.0); HEMOGLOBIN 9.8 g/dl (12.0-16.0); LYMPH # 0.8 10*3/uL (1.3-4.4); LYMPH % 22.5 % (27.0-41.0); MEAN CELL VOLUME 87.2 fl (81.0-99.0); MEAN CORPUSCULAR HGB 27.8 pg (27.0-31.0); MEAN CORPUSCULAR HGB CONC 31.9 g/dl (33.0-37.0); MEAN PLATELET VOLUME 9.3 fl (9.6-12.3); MONO # 0.3 10*3/uL (0.1-1.0); MONO % 9.3 % (3.0-9.0); NEUT # 2.2 10*3/uL (2.3-7.9); NEUT % 60.5 % (47.0-73.0); PLATELET COUNT AUTOMATED 122 10*3/uL (130-400); RED BLOOD COUNT 3.52 10*6/uL (4.10-5.10); RED CELL DISTRI WIDTH 15.5 % (0-14.5); WHITE BLOOD COUNT 3.6 10*3/uL (4.8-10.8)
[2017-05-27 06:28] LABS: INTERNATIONAL NORM RATIO 2.5 (2.0-3.5)
[2017-05-27 08:00] VITALS: BP 102/58; BP 98/57
[2017-05-27 12:00] VITALS: BP 116/66
[2017-05-27 20:00] VITALS: BP 109/55
[2017-05-28] VITALS: BP 106/64
[2017-05-28 06:10] LABS: BASO % 0.5 % (0.0-1.0); EOS # 0.3 10*3/uL (0.0-0.4); EOS % 7.5 % (1.0-4.0); HEMATOCRIT 32.8 % (37.0-47.0); HEMOGLOBIN 10.6 g/dl (12.0-16.0); LYMPH # 0.8 10*3/uL (1.3-4.4); LYMPH % 20.6 % (27.0-41.0); MEAN CELL VOLUME 86.5 fl (81.0-99.0); MEAN CORPUSCULAR HGB CONC 32.3 g/dl (33.0-37.0); MEAN PLATELET VOLUME 9.8 fl (9.6-12.3); MONO # 0.3 10*3/uL (0.1-1.0); MONO % 7.3 % (3.0-9.0); NEUT # 2.5 10*3/uL (2.3-7.9); NEUT % 63.6 % (47.0-73.0); PLATELET COUNT AUTOMATED 136 10*3/uL (130-400); RED BLOOD COUNT 3.79 10*6/uL (4.10-5.10); RED CELL DISTRI WIDTH 15.3 % (0-14.5)
[2017-05-28 06:59] LABS: INTERNATIONAL NORM RATIO 2.4 (2.0-3.5)
[2017-05-28 08:00] VITALS: BP 118/86
[2017-05-28 12:00] VITALS: BP 142/76
[2017-05-28] MEDS ORDERED: CEPHALEXIN500 M1 PO (15:16)
[2017-05-28] MEDS ORDERED: PREDNISONE10 MG PO (15:16)
[2017-05-29 08:10] LABS: HIV 1+2 AB + HIV1 P24 AG Non Reactive (Non Reactive)
== END 2017-05-28 17:14 | disposition home or self-care (01) | DRG 871 ==
LOC: ED 18:14 → EDHOLD 20:37 → 5E 20:37
PROVIDERS: Family Medicine; Internal Medicine; Internal Medicine Infectious Disease; Physician Assistant
DX: A41.9 Sepsis, unspecified organism (principal); N17.0 Acute kidney failure with tubular necrosis; E43 Unspecified severe protein-calorie malnutrition; J96.11 Chronic respiratory failure with hypoxia; E88.01 Alpha-1-antitrypsin deficiency; J44.9 Chronic obstructive pulmonary disease, unspecified; Z99.81 Dependence on supplemental oxygen; E87.1 Hypo-osmolality and hyponatremia; N39.0 Urinary tract infection, site not specified; E11.65 Type 2 diabetes mellitus with hyperglycemia; D72.810 Lymphocytopenia; F17.210 Nicotine dependence, cigarettes, uncomplicated; I10 Essential (primary) hypertension; E03.9 Hypothyroidism, unspecified; E66.09 Other obesity due to excess calories; L50.8 Other urticaria; R79.1 Abnormal coagulation profile; I87.2 Venous insufficiency (chronic) (peripheral); Z86.718 Personal history of other venous thrombosis and embolism; Z72.89 Other problems related to lifestyle; Z88.1 Allergy status to other antibiotic agents; Z80.0 Family history of malignant neoplasm of digestive organs; Z80.1 Family history of malignant neoplasm of trachea, bronchus and lung; Z82.3 Family history of stroke; Z79.84 Long term (current) use of oral hypoglycemic drugs; Z68.31 Body mass index [BMI] 31.0-31.9, adult

== ENCOUNTER 2017-06-12 13:53 | Emergency (ER) | payer MEDICARE, MEDICAID ==
[~2017-06-12] VITALS: Ht 160 cm; Wt 81.6 kg
[~2017-06-12 13:53] MED LIST changes: +ALPRAZOLAM0.25 M1 PO; +ANTI-DIARRHEAL2 MG PO; +ATORVASTATIN CA10 M1 PO; +B-121000 MCG PO; +C-10001000 MG PO; +CEPHALEXIN500 M1 PO; +COLACE CLEAR50 MG PO; +DELTASONE20 M1 PO; +DIGOX125 MCG PO; +FLONASE ALLERG9.9 ML NAS; +GEMFIBROZIL600 MG PO; +IBUPROFEN IB200 M1 PO; +KLOR-CON M1010 ME1 PO; +LASIX40 MG PO; +LEVOTHYROXINE200 MC2 PO; +LISINOPRIL2.5 MG PO; +LOPRESSOR25 MG PO; +MAGOX 400400 MG PO; +METFORMIN ER500 MG PO; +OMEPRAZOLE10 MG PO; +ONDANSETRON4 M1 PO; +OXYCODONE HYDROC5 MG PO; +Oscal,Oyster S500 MG PO; +PAIN RELIEVER325 MG PO; +PRAVACHOL20 MG PO; +SEPTDS PO; +VITAMIN D31000 UNIT PO; +VITAMIN D400 I1 PO; +XARE20MG PO; +ZOLOFT100 MG PO; +ZOVIRAX400 MG PO
[2017-06-12 14:00] VITALS: BP 123/78
== END 2017-06-12 14:49 | disposition home or self-care (01) ==
LOC: ED 13:53
DX: G89.29 Other chronic pain (principal); M54.5 Low back pain; F17.200 Nicotine dependence, unspecified, uncomplicated; Z79.01 Long term (current) use of anticoagulants; Z79.899 Other long term (current) drug therapy; Z90.89 Acquired absence of other organs; Z88.1 Allergy status to other antibiotic agents; Z88.8 Allergy status to other drugs, medicaments and biological substances

== ENCOUNTER 2017-07-03 13:12 | Emergency (ER) | payer MEDICARE, MEDICAID ==
[~2017-07-03] VITALS: Ht 160 cm; Wt 77.1 kg
[2017-07-03 13:17] VITALS: BP 132/78
[2017-07-03] MEDS ORDERED: LIDEX 0.05% CRE15 GM T (14:35)
[2017-07-03] MEDS ORDERED: MEDROL DOSEPAK4 MG PO (14:35)
== END 2017-07-03 14:50 | disposition home or self-care (01) ==
LOC: ED 13:12
DX: L25.9 Unspecified contact dermatitis, unspecified cause (principal); F17.200 Nicotine dependence, unspecified, uncomplicated; G89.29 Other chronic pain; M54.5 Low back pain; J44.9 Chronic obstructive pulmonary disease, unspecified; L50.8 Other urticaria; E78.5 Hyperlipidemia, unspecified; I10 Essential (primary) hypertension; E03.9 Hypothyroidism, unspecified; E66.9 Obesity, unspecified; Z99.81 Dependence on supplemental oxygen; Z86.718 Personal history of other venous thrombosis and embolism; Z90.89 Acquired absence of other organs; Z98.890 Other specified postprocedural states; Z79.01 Long term (current) use of anticoagulants; Z79.899 Other long term (current) drug therapy; Z88.1 Allergy status to other antibiotic agents

== ENCOUNTER 2017-07-07 12:53 | Inpatient (IN) | payer MEDICARE, MEDICAID ==
[2017-07-07] VITALS (8 sets, daily range): BP systolic 52–141; BP diastolic 38–97
[~2017-07-07] VITALS: Ht 160 cm; Wt 90.4 kg
[~2017-07-07 12:53] MED LIST changes: +LIDEX 0.05% CRE15 GM T; +MEDROL DOSEPAK4 MG PO
[2017-07-07 13:46] LABS: BASO % 0.4 % (0.0-1.0); EOS # 0.5 10*3/uL (0.0-0.4); EOS % 5.3 % (1.0-4.0); HEMATOCRIT 49.1 % (37.0-47.0); HEMOGLOBIN 15.9 g/dl (12.0-16.0); LYMPH # 1.1 10*3/uL (1.3-4.4); LYMPH % 11.8 % (27.0-41.0); MEAN CELL VOLUME 81.7 fl (81.0-99.0); MEAN CORPUSCULAR HGB 26.5 pg (27.0-31.0); MEAN CORPUSCULAR HGB CONC 32.4 g/dl (33.0-37.0); MEAN PLATELET VOLUME 9.7 fl (9.6-12.3); MONO # 0.6 10*3/uL (0.1-1.0); MONO % 6.7 % (3.0-9.0); NEUT % 75.2 % (47.0-73.0); PLATELET COUNT AUTOMATED 241 10*3/uL (130-400); RED BLOOD COUNT 6.01 10*6/uL (4.10-5.10); RED CELL DISTRI WIDTH 16.6 % (0-14.5); WHITE BLOOD COUNT 9.4 10*3/uL (4.8-10.8)
[2017-07-07 13:55] LABS: ACT PARTIAL THROMBO TIME 30.3 SECONDS (20.8-31.5); INTERNATIONAL NORM RATIO 3.4 (2.0-3.5)
[2017-07-07 14:04] LABS: ALBUMIN 2.6 gm/dl (3.1-4.5); ALKALINE PHOSPHATASE 79 U/L (45-117); BUN 31 mg/dl (7-24); CHLORIDE 99 mmol/L (98-107); CREATININE 2.53 mg/dL (0.55-1.02); POTASSIUM 4.5 mmol/L (3.5-5.1); SGOT/AST 22 IU/L (3-35); SGPT/ALT 20 U/L (12-78); SODIUM 134 mmol/L (136-145); TOTAL PROTEIN 6.2 gm/dL (6.4-8.2)
[2017-07-07 14:05] LABS: ETHYL ALCOHOL < 3.0 mg/dl (<3); TROPONIN I 0.023 ng/ml (<0.045)
[2017-07-07 14:28] LABS: BILIRUBIN NEGATIVE (NEGATIVE); BLOOD NEGATIVE (NEGATIVE); CLARITY SL CLOUDY (CLEAR); COLOR YELLOW (YELLOW); GLUCOSE NEGATIVE (NEGATIVE); KETONE TRACE (NEGATIVE); LEUKO ESTERASE NEGATIVE (NEGATIVE); NITRITE NEGATIVE (NEGATIVE); SPECIFIC GRAVITY >= 1.030 (1.005-1.030); UROBILINOGEN 0.2 E.U./dl (0.2-1.0)
[2017-07-07 14:36] LABS: URINE AMPHETAMINES < 1000 (1000ng/ml); URINE BARBITURATES < 200 (200ng/ml); URINE BENZODIAZEPINES < 200 (200ng/ml); URINE CANNABINOIDS (THC) < 50 (50ng/ml); URINE COCAINE < 300 (300ng/ml); URINE METHADONE < 300 (300ng/ml); URINE OPIATES < 300 (300ng/ml)
[2017-07-07 14:41] LABS: URINE PHENCYCLIDINE < 25 (25ng/ml)
[2017-07-07 14:53] LABS: HYALINE CAST TNTC
[2017-07-07 14:54] LABS: BACTERIA 2+
[2017-07-07] MEDS ORDERED: VITAMIN D400 UNI1 PO (19:25)
[2017-07-08 04:00] VITALS: BP 119/90
[2017-07-08 06:21] LABS: RED CELL DISTRI WIDTH 16.6 % (0-14.5)
[2017-07-08 06:24] LABS: ALBUMIN 2.1 gm/dl (3.1-4.5); CREATININE 2.71 mg/dL (0.55-1.02); PHOSPHOROUS 5.5 mg/dL (2.5-4.9); POTASSIUM 5.1 mmol/L (3.5-5.1); TOTAL PROTEIN 5.2 gm/dL (6.4-8.2)
[2017-07-08 07:09] LABS: BASO % 0.3 % (0.0-1.0); EOS # 0.6 10*3/uL (0.0-0.4); EOS % 8.3 % (1.0-4.0); HEMATOCRIT 45.4 % (37.0-47.0); HEMOGLOBIN 14.3 g/dl (12.0-16.0); LYMPH # 0.7 10*3/uL (1.3-4.4); LYMPH % 9.4 % (27.0-41.0); MEAN CELL VOLUME 83.2 fl (81.0-99.0); MEAN CORPUSCULAR HGB 26.2 pg (27.0-31.0); MEAN CORPUSCULAR HGB CONC 31.5 g/dl (33.0-37.0); MEAN PLATELET VOLUME 10.6 fl (9.6-12.3); MONO # 0.5 10*3/uL (0.1-1.0); MONO % 6.6 % (3.0-9.0); NEUT # 5.8 10*3/uL (2.3-7.9); PLATELET COUNT AUTOMATED 207 10*3/uL (130-400); RED BLOOD COUNT 5.46 10*6/uL (4.10-5.10); WHITE BLOOD COUNT 7.7 10*3/uL (4.8-10.8)
[2017-07-08 08:00] VITALS: BP 96/71
[2017-07-08 12:00] VITALS: BP 124/97
[2017-07-08 13:44] LABS: ACT PARTIAL THROMBO TIME 40.1 SECONDS (20.8-31.5)
[2017-07-08 14:12] LABS: INTERNATIONAL NORM RATIO 4.7 (2.0-3.5)
[2017-07-08 16:00] VITALS: BP 83/32; BP 93/51
[2017-07-08 20:00] VITALS: BP 94/62
[2017-07-09] VITALS: BP 104/58
[2017-07-09 04:00] VITALS: BP 92/38
[2017-07-09 05:36] LABS: ALBUMIN 1.9 gm/dl (3.1-4.5); CREATININE 1.54 mg/dL (0.55-1.02)
[2017-07-09 05:42] LABS: BASO % 0.2 % (0.0-1.0); EOS # 0.7 10*3/uL (0.0-0.4); EOS % 12.5 % (1.0-4.0); LYMPH # 0.4 10*3/uL (1.3-4.4); LYMPH % 8.4 % (27.0-41.0); MEAN CELL VOLUME 82.9 fl (81.0-99.0); MEAN CORPUSCULAR HGB 26.1 pg (27.0-31.0); MEAN CORPUSCULAR HGB CONC 31.5 g/dl (33.0-37.0); MEAN PLATELET VOLUME 9.7 fl (9.6-12.3); MONO # 0.4 10*3/uL (0.1-1.0); MONO % 6.7 % (3.0-9.0); NEUT # 3.8 10*3/uL (2.3-7.9); NEUT % 71.6 % (47.0-73.0); RED BLOOD COUNT 4.56 10*6/uL (4.10-5.10); RED CELL DISTRI WIDTH 16.2 % (0-14.5); WHITE BLOOD COUNT 5.3 10*3/uL (4.8-10.8)
[2017-07-09 05:53] LABS: HEMATOCRIT 37.8 % (37.0-47.0); HEMOGLOBIN 11.9 g/dl (12.0-16.0); PLATELET COUNT AUTOMATED 138 10*3/uL (130-400)
[2017-07-09 08:00] VITALS: BP 99/62
[2017-07-09 12:00] VITALS: BP 96/39
[2017-07-09 16:00] VITALS: BP 111/62
[2017-07-09 20:00] VITALS: BP 114/45
[2017-07-10] VITALS: BP 104/54
[2017-07-10 04:00] VITALS: BP 106/44
[2017-07-10 06:21] LABS: INTERNATIONAL NORM RATIO 1.9 (2.0-3.5)
[2017-07-10 06:37] LABS: ALBUMIN 1.9 gm/dl (3.1-4.5); CHLORIDE 108 mmol/L (98-107); CREATININE 0.82 mg/dL (0.55-1.02); PHOSPHOROUS 2.1 mg/dL (2.5-4.9); SODIUM 139 mmol/L (136-145)
[2017-07-10 06:41] LABS: BUN 21 mg/dl (7-24); POTASSIUM 3.9 mmol/L (3.5-5.1)
[2017-07-10 07:52] VITALS: BP 123/71
[2017-07-10 12:00] VITALS: BP 110/61
[2017-07-10] MEDS ORDERED: Aquaphor T (15:09)
[2017-07-10] MEDS ORDERED: CYCLOBENZAPRINE10 MG PO (15:09)
[2017-07-10 16:00] VITALS: BP 103/55; BP 121/68
== END 2017-07-10 18:11 | disposition other institution (70) | DRG 871 ==
LOC: ED 12:53 → EDHOLD 14:21 → ICCU 14:21 → EDHOLD 14:22 → 5E 14:53 → ICCU 16:36 → 4E 07-10 10:46
PROVIDERS: Emergency Medicine; Internal Medicine; Internal Medicine Nephrology; Student in an Organized Health Care Education/Training Program
DX: A41.9 Sepsis, unspecified organism (principal); E43 Unspecified severe protein-calorie malnutrition; N17.0 Acute kidney failure with tubular necrosis; I95.9 Hypotension, unspecified; J96.11 Chronic respiratory failure with hypoxia; E87.2 Acidosis; E11.65 Type 2 diabetes mellitus with hyperglycemia; E83.41 Hypermagnesemia; J44.9 Chronic obstructive pulmonary disease, unspecified; E87.1 Hypo-osmolality and hyponatremia; R65.20 Severe sepsis without septic shock; E86.0 Dehydration; I87.2 Venous insufficiency (chronic) (peripheral); R79.1 Abnormal coagulation profile; R79.89 Other specified abnormal findings of blood chemistry; I10 Essential (primary) hypertension; E78.5 Hyperlipidemia, unspecified; E03.9 Hypothyroidism, unspecified; L50.8 Other urticaria; R29.6 Repeated falls; M54.5 Low back pain; G89.29 Other chronic pain; E66.9 Obesity, unspecified; Z68.32 Body mass index [BMI] 32.0-32.9, adult; Z72.0 Tobacco use; Z88.1 Allergy status to other antibiotic agents; Z79.899 Other long term (current) drug therapy; Z79.01 Long term (current) use of anticoagulants; Z80.1 Family history of malignant neoplasm of trachea, bronchus and lung; Z82.3 Family history of stroke; Z86.718 Personal history of other venous thrombosis and embolism; Z79.84 Long term (current) use of oral hypoglycemic drugs

== ENCOUNTER 2017-09-05 12:56 | Emergency (ER) | payer MEDICARE, MEDICAID ==
[~2017-09-05] VITALS: Ht 160 cm; Wt 81.6 kg
[~2017-09-05 12:56] MED LIST changes: +Aquaphor T; +CLARITIN10 MG PO; +COUMADIN5 M2 PO; +FUROSEMIDE20 M1 PO; -LEVOTHYROXINE200 MC2 PO; +LEVOXYL175 MCG PO; +NORCO 5-325 TA1 EACH PO; +TRAD5TAB1 PO; +VITAMIN D400 UNI1 PO
[2017-09-05 12:57] VITALS: BP 123/68
[2017-09-05 14:13] LABS: BASO % 0.2 % (0.0-1.0); EOS # 0.1 10*3/uL (0.0-0.4); HEMATOCRIT 36.3 % (37.0-47.0); HEMOGLOBIN 11.4 g/dl (12.0-16.0); LYMPH # 0.9 10*3/uL (1.3-4.4); MEAN CELL VOLUME 83.1 fl (81.0-99.0); MEAN CORPUSCULAR HGB 26.1 pg (27.0-31.0); MEAN CORPUSCULAR HGB CONC 31.4 g/dl (33.0-37.0); MEAN PLATELET VOLUME 9.2 fl (9.6-12.3); MONO # 0.3 10*3/uL (0.1-1.0); MONO % 6.3 % (3.0-9.0); NEUT # 3.7 10*3/uL (2.3-7.9); NEUT % 73.3 % (47.0-73.0); PLATELET COUNT AUTOMATED 175 10*3/uL (130-400); RED BLOOD COUNT 4.37 10*6/uL (4.10-5.10); RED CELL DISTRI WIDTH 17.7 % (0-14.5); WHITE BLOOD COUNT 5.1 10*3/uL (4.8-10.8)
[2017-09-05 14:28] LABS: ALBUMIN 3.1 gm/dl (3.1-4.5); ALKALINE PHOSPHATASE 79 U/L (45-117); BUN 10 mg/dl (7-24); CHLORIDE 106 mmol/L (98-107); CREATININE 0.86 mg/dL (0.55-1.02); POTASSIUM 3.8 mmol/L (3.5-5.1); SGOT/AST 9 IU/L (3-35); SGPT/ALT 15 U/L (12-78); SODIUM 138 mmol/L (136-145); TOTAL PROTEIN 8.3 gm/dL (6.4-8.2)
[2017-09-05 14:32] LABS: TROPONIN I < 0.015 ng/ml (<0.045)
[2017-09-05 14:38] LABS: INTERNATIONAL NORM RATIO 4.7 (2.0-3.5)
[2017-09-11] MEDS ORDERED: TYLENOL325 M2 PO (08:56)
[2017-09-17] MEDS ORDERED: TRAMADOL HCL50 MG PO (10:13)
== END 2017-09-05 15:16 | disposition home or self-care (01) ==
LOC: ED 12:56
PROVIDERS: Emergency Medicine
DX: R62.7 Adult failure to thrive (principal); J44.9 Chronic obstructive pulmonary disease, unspecified; E11.9 Type 2 diabetes mellitus without complications; E78.5 Hyperlipidemia, unspecified; I10 Essential (primary) hypertension; E66.9 Obesity, unspecified; F17.200 Nicotine dependence, unspecified, uncomplicated; Z99.81 Dependence on supplemental oxygen; Z90.89 Acquired absence of other organs; Z88.1 Allergy status to other antibiotic agents; Z86.718 Personal history of other venous thrombosis and embolism; Z79.01 Long term (current) use of anticoagulants; Z79.899 Other long term (current) drug therapy

== ENCOUNTER 2019-03-25 10:33 | Inpatient (IN) | payer MEDICARE ==
[~2019-03-25] VITALS: Ht 154.9 cm; Wt 78.3 kg
[~2019-03-25 10:33] MED LIST changes: +ACETAMINOPHEN650 M5 PO; +ARTIFICIAL TEAR1511 OU; +BACLOFEN5 MG PO; +Bactroban Oint22 GM T; +CIPRO250 MG PO; +CIPRO500 MG PO; +CLEOCIN HCL300 MG PO; +CLOBETASOL EMOL15 GM T; +CORTISONE28 GM T; +COUMADIN1 M1 PO; +Coumadin5 MG PO; +DIPHENHYDRAMINE25 M2 PO; +DIPROLENE 0.05%15 GM T; +FENOFIBRATE160 MG PO; +GLUCOPHAGE500 M1 PO; +HUMALOG100 UNIT/2 SQ; +HYDROXYZINE10 MG PO; +KENALOG 0.1%80 GM T; +LIDODERM1 EACH T; +MAALOX MAXIMUM355 ML PO; +MELATONIN5 M7 PO; +MILLIPRED5 MG PO; +MIRAPEX0.125 M1 PO; +MYLANTA MAXIMU355 M1 PO; +POTASSIUM CHLO20 ME3 PO; +PREDNISONE5 MG PO; +SLIDING SCALE SQ; +Synthroid,Lev100 MCG PO; +TYLENOL325 M2 PO; +VENTOLIN 02.5 MG/3 M INH; +WARFARIN SODIUM2 MG PO
[2019-03-25 10:46] VITALS: BP 117/67
[2019-03-25 10:47] LABS: HEMATOCRIT 32.2 % (37.0-47.0); HEMOGLOBIN 9.6 g/dl (12.0-16.0); MEAN CELL VOLUME 78.9 fl (81.0-99.0); MEAN CORPUSCULAR HGB 23.5 pg (27.0-31.0); MEAN CORPUSCULAR HGB CONC 29.8 g/dl (33.0-37.0); MEAN PLATELET VOLUME 9.7 fl (9.6-12.3); PLATELET COUNT AUTOMATED 142 10*3/uL (130-400); RED BLOOD COUNT 4.08 10*6/uL (4.10-5.10); RED CELL DISTRI WIDTH 18.8 % (0-14.5); WHITE BLOOD COUNT 4.1 10*3/uL (4.8-10.8)
[2019-03-25 10:59] LABS: ACT PARTIAL THROMBO TIME 31.1 SECONDS (20.0-32.1); INTERNATIONAL NORM RATIO 1.6 (2.0-3.5)
[2019-03-25 11:03] LABS: ALBUMIN 2.7 gm/dl (3.1-4.5); ALKALINE PHOSPHATASE 60 U/L (45-117); BUN 18 mg/dl (7-24); CHLORIDE 102 mmol/L (98-107); CREATININE 1.27 mg/dL (0.55-1.02); POTASSIUM 4.7 mmol/L (3.5-5.1); SGOT/AST 14 IU/L (3-35); SGPT/ALT 20 U/L (12-78); SODIUM 134 mmol/L (136-145); TOTAL PROTEIN 7.8 gm/dL (6.4-8.2)
[2019-03-25 11:04] LABS: TROPONIN I < 0.015 ng/ml (<0.045)
[2019-03-25 11:08] LABS: BASOPHILS 1 % (0-1); PLATELET SUFFICIENCY NORMAL (NORMAL); TOTAL CELLS COUNTED 100 #CELLS; TOXIC GRANULATION MODERATE; VACUOLATION OF NEUTROPHILS SLIGHT
[2019-03-25 11:09] LABS: MICROCYTOSIS SLIGHT
[2019-03-25 11:10] LABS: POLYCHROMASIA SLIGHT
[2019-03-25 13:13] VITALS: BP 120/44
[2019-03-25 15:43] VITALS: BP 100/48
[2019-03-25 16:00] VITALS: BP 103/56
[2019-03-25 20:00] VITALS: BP 104/41
[2019-03-26] VITALS: BP 105/56
[2019-03-26 07:03] LABS: BUN 15 mg/dl (7-24); CHLORIDE 110 mmol/L (98-107); CREATININE 0.92 mg/dL (0.55-1.02); PHOSPHOROUS 2.6 mg/dL (2.5-4.9); SODIUM 142 mmol/L (136-145)
[2019-03-26 07:14] LABS: HEMATOCRIT 26.1 % (37.0-47.0); HEMOGLOBIN 7.8 g/dl (12.0-16.0); INTERNATIONAL NORM RATIO 1.4 (2.0-3.5); MEAN CELL VOLUME 79.8 fl (81.0-99.0); MEAN CORPUSCULAR HGB 23.9 pg (27.0-31.0); MEAN CORPUSCULAR HGB CONC 29.9 g/dl (33.0-37.0); MEAN PLATELET VOLUME 9.9 fl (9.6-12.3); PLATELET COUNT AUTOMATED 115 10*3/uL (130-400); RED BLOOD COUNT 3.27 10*6/uL (4.10-5.10); RED CELL DISTRI WIDTH 18.6 % (0-14.5); WHITE BLOOD COUNT 2.2 10*3/uL (4.8-10.8)
[2019-03-26 07:52] VITALS: BP 96/40
[2019-03-26 09:46] LABS: TOTAL CELLS COUNTED 100 #CELLS
[2019-03-26 09:47] LABS: PLATELET SUFFICIENCY LOW (NORMAL)
[2019-03-26 12:18] VITALS: BP 118/73
[2019-03-26 16:00] VITALS: BP 112/79
[2019-03-26 20:00] VITALS: BP 93/71
[2019-03-27] VITALS: BP 104/61
[2019-03-27 06:30] LABS: BUN 20 mg/dl (7-24); CHLORIDE 110 mmol/L (98-107); SODIUM 140 mmol/L (136-145)
[2019-03-27 06:32] LABS: HEMATOCRIT 25.9 % (37.0-47.0); HEMOGLOBIN 7.9 g/dl (12.0-16.0); MEAN CORPUSCULAR HGB 24.1 pg (27.0-31.0); MEAN CORPUSCULAR HGB CONC 30.5 g/dl (33.0-37.0); MEAN PLATELET VOLUME 10.1 fl (9.6-12.3); NUCLEATED RED BLOOD CELL 0.9 % (0.0-0.0); PLATELET COUNT AUTOMATED 140 10*3/uL (130-400); RED BLOOD COUNT 3.28 10*6/uL (4.10-5.10); RED CELL DISTRI WIDTH 18.8 % (0-14.5); WHITE BLOOD COUNT 3.4 10*3/uL (4.8-10.8)
[2019-03-27 06:51] LABS: INTERNATIONAL NORM RATIO 1.9 (2.0-3.5)
[2019-03-27 07:42] LABS: ATYPICAL LYMPHS 1 % (0-0); PLATELET SUFFICIENCY NORMAL (NORMAL); POLYCHROMASIA SLIGHT; TOTAL CELLS COUNTED 100 #CELLS; TOXIC GRANULATION SLIGHT
[2019-03-27 08:00] VITALS: BP 106/54
[2019-03-27 12:00] VITALS: BP 104/51
[2019-03-27 16:00] VITALS: BP 104/57
[2019-03-27 20:00] VITALS: BP 117/53
[2019-03-28] VITALS: BP 123/66
[2019-03-28 06:58] LABS: HEMATOCRIT 29.5 % (37.0-47.0); HEMOGLOBIN 8.7 g/dl (12.0-16.0); MEAN CELL VOLUME 81.7 fl (81.0-99.0); MEAN CORPUSCULAR HGB 24.1 pg (27.0-31.0); MEAN CORPUSCULAR HGB CONC 29.5 g/dl (33.0-37.0); NUCLEATED RED BLOOD CELL 0.8 % (0.0-0.0); PLATELET COUNT AUTOMATED 153 10*3/uL (130-400); RED BLOOD COUNT 3.61 10*6/uL (4.10-5.10); RED CELL DISTRI WIDTH 19.2 % (0-14.5); WHITE BLOOD COUNT 3.6 10*3/uL (4.8-10.8)
[2019-03-28 07:10] LABS: BUN 18 mg/dl (7-24); CHLORIDE 108 mmol/L (98-107); CREATININE 0.96 mg/dL (0.55-1.02); POTASSIUM 4.1 mmol/L (3.5-5.1); SODIUM 142 mmol/L (136-145)
[2019-03-28 07:49] LABS: ATYPICAL LYMPHS 1 % (0-0); PLATELET SUFFICIENCY NORMAL (NORMAL); POLYCHROMASIA SLIGHT; TOTAL CELLS COUNTED 100 #CELLS; TOXIC GRANULATION SLIGHT
[2019-03-28 08:00] VITALS: BP 119/55
[2019-03-28 12:00] VITALS: BP 102/53
[2019-03-28] MEDS ORDERED: ZITHROMAX250 MG PO (13:50)
[2019-03-28] MEDS ORDERED: COUMADIN6 M2 PO (13:50)
[2019-03-28] MEDS ORDERED: MUCINEX ER600 MG PO (13:50)
[2019-03-28] MEDS ORDERED: PREDNISONE10 MG PO (13:53)
== END 2019-03-28 14:50 | DRG 871 ==
LOC: ED 10:33 → 4E 14:53 → 5E 14:53 → EDHOLD 14:53 → 4E 15:15 → 5E 03-26 13:14
PROVIDERS: Emergency Medicine; Student in an Organized Health Care Education/Training Program; ADMIT Family Medicine
DX: A41.9 Sepsis, unspecified organism (principal); J18.9 Pneumonia, unspecified organism; N17.0 Acute kidney failure with tubular necrosis; E43 Unspecified severe protein-calorie malnutrition; J44.1 Chronic obstructive pulmonary disease with (acute) exacerbation; J96.11 Chronic respiratory failure with hypoxia; J44.0 Chronic obstructive pulmonary disease with (acute) lower respiratory infection; E87.1 Hypo-osmolality and hyponatremia; R65.20 Severe sepsis without septic shock; D50.9 Iron deficiency anemia, unspecified; F17.210 Nicotine dependence, cigarettes, uncomplicated; E11.649 Type 2 diabetes mellitus with hypoglycemia without coma; E03.9 Hypothyroidism, unspecified; E88.01 Alpha-1-antitrypsin deficiency; I12.9 Hypertensive chronic kidney disease with stage 1 through stage 4 chronic kidney disease, or unspecified chronic kidney disease; N18.3 Chronic kidney disease, stage 3 (moderate); E66.9 Obesity, unspecified; J20.9 Acute bronchitis, unspecified; F32.9 Major depressive disorder, single episode, unspecified; F41.1 Generalized anxiety disorder; Z99.81 Dependence on supplemental oxygen; Z68.32 Body mass index [BMI] 32.0-32.9, adult; Z79.4 Long term (current) use of insulin; Z71.6 Tobacco abuse counseling; Z88.1 Allergy status to other antibiotic agents; Z88.8 Allergy status to other drugs, medicaments and biological substances; Z82.3 Family history of stroke; Z80.0 Family history of malignant neoplasm of digestive organs; Z80.1 Family history of malignant neoplasm of trachea, bronchus and lung; Z79.899 Other long term (current) drug therapy; Z79.01 Long term (current) use of anticoagulants; Z86.718 Personal history of other venous thrombosis and embolism

== ENCOUNTER 2020-05-25 10:39 | Emergency (ER) | payer MEDICARE ==
[~2020-05-25 10:39] MED LIST changes: +LEVOTHYROXINE200 MC2 PO; +MUCINEX ER600 MG PO; +ZITHROMAX250 MG PO
[2020-05-25 11:40] LABS: BASO % 0.2 % (0.0-1.0); EOS # 0.1 10*3/uL (0.0-0.4); EOS % 1.2 % (1.0-4.0); LYMPH # 0.6 10*3/uL (1.3-4.4); LYMPH % 9.6 % (27.0-41.0); MEAN CELL VOLUME 80.1 fl (81.0-99.0); MEAN CORPUSCULAR HGB 24.5 pg (27.0-31.0); MEAN CORPUSCULAR HGB CONC 30.5 g/dl (33.0-37.0); MONO # 0.5 10*3/uL (0.1-1.0); MONO % 8.3 % (3.0-9.0); NEUT # 4.9 10*3/uL (2.3-7.9); PLATELET COUNT AUTOMATED 70 10*3/uL (130-400); RED BLOOD COUNT 4.62 10*6/uL (4.10-5.10); WHITE BLOOD COUNT 6.1 10*3/uL (4.8-10.8)
[2020-05-25 11:48] LABS: ACT PARTIAL THROMBO TIME 42.7 SECONDS (20.0-32.1); ALKALINE PHOSPHATASE 177 U/L (45-117); BUN 30 mg/dl (7-24); CHLORIDE 102 mmol/L (98-107); CREATININE 1.03 mg/dL (0.55-1.02); LIPASE 58 U/L (73-393); POTASSIUM 4.8 mmol/L (3.5-5.1); SGOT/AST 120 IU/L (3-35); SGPT/ALT 80 U/L (12-78); SODIUM 134 mmol/L (136-145); TOTAL PROTEIN 5.9 gm/dL (6.4-8.2)
[2020-05-25 11:53] LABS: TROPONIN I < 0.015 ng/ml (<0.045)
[2020-05-25 11:59] LABS: INTERNATIONAL NORM RATIO 5.6 (2.0-3.5)
[2020-05-25 14:32] VITALS: BP 122/64
== END 2020-05-25 17:30 | disposition short-term general hospital (02) ==
LOC: ED 10:39
PROVIDERS: Emergency Medicine
DX: C79.9 Secondary malignant neoplasm of unspecified site (principal); R79.1 Abnormal coagulation profile; R79.89 Other specified abnormal findings of blood chemistry; R16.0 Hepatomegaly, not elsewhere classified; I50.9 Heart failure, unspecified; J44.9 Chronic obstructive pulmonary disease, unspecified; E11.9 Type 2 diabetes mellitus without complications; F32.9 Major depressive disorder, single episode, unspecified; E03.9 Hypothyroidism, unspecified; N18.9 Chronic kidney disease, unspecified; Z79.899 Other long term (current) drug therapy; Z79.4 Long term (current) use of insulin; Z79.2 Long term (current) use of antibiotics; Z79.01 Long term (current) use of anticoagulants; Z98.890 Other specified postprocedural states